=== PATIENT | female | born 1985 | race Caucasian/White ===

== ENCOUNTER 2023-08-24 09:45 | Outpatient (CLI) | payer OTHER | END 2023-08-24 09:54 | disposition home or self-care (01) | LOC: RX STUDY 09:45 | DX: N96 Recurrent pregnancy loss (principal); N91.2 Amenorrhea, unspecified; N93.9 Abnormal uterine and vaginal bleeding, unspecified; Q50.6 Other congenital malformations of fallopian tube and broad ligament ==

== ENCOUNTER 2024-10-11 06:30 | Day surgery (SDC) | payer OTHER ==
[2024-10-10 15:49] LABS: HEMATOCRIT 39.7 % (36.0-45.00); HEMOGLOBIN 13.1 g/dL (12.0-15.00); MEAN CELL VOLUME 89.6 fL (80.00-100.00); MEAN CORPUSCULAR HEMOGLOBIN 29.5 pg (27.00-32.0); MEAN CORPUSCULAR HGB CONC 32.9 g/dl (32.0-36.0); PLATELET COUNT 306 K/uL (150-450); RED BLOOD COUNT 4.43 M/uL (4.00-6.00); RED CELL DISTRIBUTION WIDTH 13.6 % (11.5-14.5)
[2024-10-10 16:08] LABS: INR 0.97; PROTHROMBIN TIME 10.6 SECONDS (9.0-11.5)
[2024-10-10 16:53] LABS: RH NEGATIVE
[2024-10-11] MEDS ORDERED: CEFOXITIN SODIUM 2,000 MG VIAL IV ONE (09:03)
[2024-10-11] MEDS ORDERED: POVIDONE-IODINE 118 ML BOTT TOP ONE (09:03)
[2024-10-11] MEDS ORDERED: GLY IJ ONE (10:45)
[2024-10-11] MEDS ORDERED: [UNRECOGNIZED DRUG - OTHER] IJ ONE (10:45)
[2024-10-11] MEDS ORDERED: IGA OV50 IJ ONE (10:45)
[2024-10-11] MEDS ORDERED: IMMUN GLOB IJ ONE (10:45)
[2024-10-11] MEDS ORDERED: FF) RHO(D) IMMUNE GLOBULIN (POM) IM ONE (11:45)
== END 2024-10-11 13:40 | disposition home or self-care (01) ==
LOC: CIR.AMB 06:30
PROVIDERS: ATTEND Obstetrics & Gynecology Maternal & Fetal Medicine
DX: O02.1 Missed abortion (principal)

== ENCOUNTER 2025-05-28 12:01 | Outpatient (CLI) | payer OTHER | END 2025-05-28 13:15 | disposition home or self-care (01) | LOC: NST 12:01 | PROVIDERS: ATTEND Obstetrics & Gynecology | DX: Z34.83 Encounter for supervision of other normal pregnancy, third trimester (principal) ==